=== PATIENT | male | born 1990 | race Caucasian/White ===

== ENCOUNTER 2021-07-05 14:06 | Emergency (ER) | payer OTHER ==
[2021-07-05 16:00] LABS: BUN/CREATININE RATIO 15 (0-10)
[2021-07-05 16:25] LABS: HEMOGLOBIN 15.1 gm/dl (14.0-17.5); RED BLOOD COUNT 4.53 M/UL (4.20-5.50); WHITE BLOOD COUNT 10.1 K/UL (4.5-11.0)
[2021-07-05] MEDS ORDERED: MIRALAX17 GM PO (17:32)
== END 2021-07-05 17:42 | disposition home or self-care (01) ==
LOC: ER1 14:06
PROVIDERS: Nurse Practitioner
DX: K59.00 Constipation, unspecified (principal); I10 Essential (primary) hypertension; Z90.49 Acquired absence of other specified parts of digestive tract; Z79.899 Other long term (current) drug therapy
CPT/HCPCS: 80053; 84439; 84443; 85025; 99284; J7030; Q9967

== ENCOUNTER 2021-07-07 08:51 | Emergency (ER) | payer OTHER ==
[~2021-07-07 08:51] MED LIST: MIRALAX17 GM PO
[2021-07-07] MEDS ORDERED: [UNRECOGNIZED DRUG - OTHER] PR (09:36)
[2021-07-07] MEDS ORDERED: CITRATE OF MAG296 ML PO (09:36)
== END 2021-07-07 09:47 | disposition home or self-care (01) ==
LOC: ER1 08:51
DX: K59.00 Constipation, unspecified (principal); I10 Essential (primary) hypertension; F17.210 Nicotine dependence, cigarettes, uncomplicated; Z90.49 Acquired absence of other specified parts of digestive tract
CPT/HCPCS: 99283

== ENCOUNTER 2022-05-30 14:39 | Emergency (ER) | payer OTHER ==
[~2022-05-30 14:39] MED LIST changes: +CITRATE OF MAG296 ML PO; +[UNRECOGNIZED DRUG - OTHER] PR
[2022-05-30] MEDS ORDERED: CYCLOBENZAPRINE10 MG PO (15:22)
== END 2022-05-30 15:47 | disposition home or self-care (01) ==
LOC: ER1 14:39
DX: S86.911A Strain of unspecified muscle(s) and tendon(s) at lower leg level, right leg, initial encounter (principal); F17.200 Nicotine dependence, unspecified, uncomplicated; W01.0XXA Fall on same level from slipping, tripping and stumbling without subsequent striking against object, initial encounter
CPT/HCPCS: 99283